=== PATIENT | male | born 1980 | race Two or more races ===

== ENCOUNTER → 2024-12-06 | Outpatient (CLI) | payer MEDICAID, SELFPAY ==
--- NOTE | 2024-12-06 17:00 | XR_ITS ---
Examination: CT brain head without contrast. 2-D sagittal coronal reconstructions Date and time of exam:December 06, 2024 1639 hours INDICATIONS: Headaches beginning 2 months ago CTDI: vol (mGy):53.1 DLP: (mGycm):1070 Technique: Multiple CT axial sections of the brain have been obtained, 5 mm slice thickness. Contrast has not been administered. 2-D sagittal, coronal reconstructions have been obtained Low dose protocols were performed. One or more of the following dose reduction techniques were used; automated exposure control, adjustment of the mA and/or KV according to patient size, use of iterative reconstruction technique. Findings: No significant ventricular enlargement. Intra-axial or extra-axial hemorrhage density is not seen. No mass effect or midline shift Basal cisterns are not remarkable. Fourth ventricle is midline. Cranial vault intact. Impression: Negative for acute hemorrhage, mass effect or midline shift Moderate bilateral chronic mastoiditis Advise clinical correlation follow-up accordingly
== END | disposition home or self-care (01) ==
LOC: CCTX 16:36
PROVIDERS: Referring Provider Physician Assistant; Visit Provider Physician Assistant
DX: H70.13 Chronic mastoiditis, bilateral (principal)
CPT/HCPCS: 70450

== ENCOUNTER → 2024-12-20 | Outpatient (CLI) | payer MEDICAID, SELFPAY ==
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
== END | disposition home or self-care (01) ==
PROVIDERS: PCP Physician Assistant; Referring Provider Physician Assistant; Visit Provider Physician Assistant
DX: M51.379 Other intervertebral disc degeneration, lumbosacral region without mention of lumbar back pain or lower extremity pain (principal); G95.20 Unspecified cord compression; M51.369 Other intervertebral disc degeneration, lumbar region without mention of lumbar back pain or lower extremity pain
CPT/HCPCS: 72148

== ENCOUNTER → 2025-08-12 | Outpatient (CLI) | payer MEDICAID, SELFPAY ==
--- NOTE | 2025-08-12 17:00 | XR_ITS ---
Examination: CT brain head without contrast. 2-D sagittal coronal reconstructions Date and time of exam: August 12, 2025, 1640 hours INDICATIONS: Recurrent frontal headache several days COMPARISON: 03/13/2025 CTDI: vol (mGy): 52.9 DLP: (mGycm): 1114 Technique: Multiple CT axial sections of the brain have been obtained, 5 mm slice thickness. Contrast has not been administered. 2-D sagittal, coronal reconstructions have been obtained Low dose protocols were performed. One or more of the following dose reduction techniques were used; automated exposure control, adjustment of the mA and/or KV according to patient size, use of iterative reconstruction technique. Findings: No significant ventricular enlargement. Intra-axial or extra-axial hemorrhage density is not seen. No mass effect or midline shift Basal cisterns are not remarkable. Fourth ventricle is midline. Cranial vault intact. Impression: Negative for acute hemorrhage, mass effect or midline shift Mild frontal ethmoid chronic sinusitis Acute left sphenoid sinusitis Bilateral mastoiditis Acute right mastoiditis
== END | disposition home or self-care (01) ==
LOC: CCTX 16:19
PROVIDERS: Referring Provider Physician Assistant; Visit Provider Physician Assistant
DX: J32.8 Other chronic sinusitis (principal); J01.30 Acute sphenoidal sinusitis, unspecified; H70.93 Unspecified mastoiditis, bilateral
CPT/HCPCS: 70450